=== PATIENT | female | born 1975 | race African-American/Black ===

== ENCOUNTER 2019-11-22 01:51 | Emergency (ER) | payer MEDICARE, MEDICAID ==
[~2019-11-22] VITALS: Ht 160 cm; Wt 58.9 kg
[2019-11-22] MEDS ORDERED: KETOROLAC 30MG/ML VIAL IM ONE (04:45)
[2019-11-22] MEDS ORDERED: HYDROCODONE/ACETAMINOPHEN 5/325MG TABLET PO ONE (04:45)
[2019-11-22 05:51] VITALS: BP 130/75
== END 2019-11-22 05:53 | disposition home or self-care (01) ==
LOC: ER 01:51
DX: K02.9 Dental caries, unspecified (principal)
CPT/HCPCS: 96372; 99283; J1885